=== PATIENT | female | born 1985 | race African-American/Black ===

== ENCOUNTER 2017-04-16 19:23 | Emergency (ER) | payer OTHER ==
[~2017-04-16] VITALS: Ht 162.6 cm; Wt 54.5 kg
[2017-04-16 21:28] VITALS: BP 114/58
== END 2017-04-16 21:32 | disposition home or self-care (01) ==
LOC: M ED 19:23
DX: L25.9 Unspecified contact dermatitis, unspecified cause (principal)

== ENCOUNTER → 2018-01-16 | Outpatient (REF) | payer OTHER ==
[2018-01-16 14:05] LABS: FERRITIN 49 NG/ML (8-252); IRON (FE) 112 UG/DL (50-170); PERCENT SATURATION 38.5 % (13.2-45.0); TOTAL IRON BINDING CAPACITY 291 UG/DL (250-450)
[2018-01-16 14:56] LABS: HEPATITIS C VIRUS ABY INDEX 0.1 INDEX (<0.8)
[2018-01-16 16:57] LABS: HIV 1&2 SCREEN CENTAUR NEGATIVE (NEGATIVE)
[2018-01-19 14:17] LABS: ANTINUCLEAR ANTIBODIES DIRECT Negative (Negative)
== END ==
LOC: M LAB REF 13:30
DX: D69.6 Thrombocytopenia, unspecified (principal)
CPT/HCPCS: 83550

== ENCOUNTER 2018-01-27 12:03 | Emergency (ER) | payer OTHER ==
[2018-01-27] MEDS: NS 1,000 ML IV (13:11)
[2018-01-27] MEDS: METOCLOPRAMIDE INJ 10MG/2ML VIAL (J2765) IV (13:11)
[2018-01-27 13:27] LABS: BASO # 0.1 10^3/uL (0.0-0.2); BASO % 0.5 % (0.0-1.0); EOS % 0.3 % (0.0-3.0); HEMATOCRIT 34.8 % (36.0-47.0); HEMOGLOBIN 12.3 g/dl (12.0-15.5); IMMATURE GRANULOCYTE % 0.4 % (0-3.0); LYMPH # 2.3 10^3/uL (1.5-4.5); LYMPH % 17.4 % (24.0-44.0); MEAN CORPUSCULAR HEMOGLOBIN 30.5 pg (27.0-33.0); MEAN CORPUSCULAR HGB CONC 35.3 g/dl (32.0-36.5); MEAN CORPUSCULAR VOLUME 86.4 fl (80.0-96.0); MONO # 0.6 10^3/uL (0.0-0.8); MONO % 4.3 % (0.0-5.0); NEUTROPHILS % 77.1 % (36.0-66.0); PLATELET COUNT, AUTOMATED 168 10^3/uL (150-450); RED BLOOD COUNT 4.03 10^6/uL (4.00-5.40); RED CELL DISTRIBUTION WIDTH 12.2 % (11.5-14.5)
[2018-01-27 13:30] LABS: KETONE, URINE AUTO RFX TRACE mg/dL (NEGATIVE); LEUKOCYTE ESTERASE UR AUTO RFX NEGATIVE (NEGATIVE); NITRITE, URINE AUTO RFX NEGATIVE (NEGATIVE); RBC, URINE AUTO RFX 1 /HPF (0-3); SPECIFIC GRAVITY UR AUTO RFX 1.013 (1.002-1.035); SQUAM EPITHELIAL CELL UR AURFX 1 /HPF (0-6); WBC, URINE AUTO RFX 4 /HPF (0-3)
[2018-01-27 14:01] LABS: ALBUMIN 3.7 GM/DL (3.2-5.2); ALBUMIN/GLOBULIN RATIO 1.12 (1.00-1.93); ALKALINE PHOSPHATASE 47 U/L (45-117); ALT/SGPT 19 U/L (12-78); AMYLASE 41 U/L (25-115); ANION GAP 11 MEQ/L (8-16); AST/SGOT 17 U/L (7-37); BILIRUBIN,TOTAL 0.5 MG/DL (0.2-1.0); BLOOD UREA NITROGEN 10 MG/DL (7-18); CALCIUM LEVEL 8.5 MG/DL (8.5-10.1); CARBON DIOXIDE LEVEL 23 MEQ/L (21-32); CHLORIDE LEVEL 105 MEQ/L (98-107); CREATININE FOR GFR 0.89 MG/DL (0.55-1.30); GLOMERULAR FILTRATION RATE > 60.0 (>60); GLUCOSE, FASTING 69 MG/DL (70-100); HCG, SERUM QUANTITATIVE 89430 MIU/ML; LIPASE 89 U/L (73-393); POTASSIUM SERUM 3.7 MEQ/L (3.5-5.1); SODIUM LEVEL 139 MEQ/L (136-145)
== END 2018-01-27 15:39 | disposition home or self-care (01) ==
LOC: M ED 12:03
DX: O21.0 Mild hyperemesis gravidarum (principal); Z3A.01 Less than 8 weeks gestation of pregnancy; Z79.899 Other long term (current) drug therapy; Z88.0 Allergy status to penicillin
CPT/HCPCS: J2765

== ENCOUNTER → 2018-03-12 | Outpatient (REF) | payer OTHER ==
[2018-03-13 13:12] LABS: CHLAMYDIA DNA AMPLIFICATION NEGATIVE (NEGATIVE); GC DNA AMPLIFICATION POSITIVE (NEGATIVE)
== END ==
LOC: M SFHCLERA 12:48
DX: N89.8 Other specified noninflammatory disorders of vagina (principal)

== ENCOUNTER 2018-03-13 15:01 | Emergency (ER) | payer OTHER ==
[2018-03-13] MEDS ORDERED: LIDOCAINE 1% MDV 20ML VIAL As Ordered (16:31)
[2018-03-13] MEDS: cefTRIAXone SOD 1 GM VIAL (J0696) IM (16:39)
[2018-03-13] MEDS: AZITHROMYCIN 250 MG TAB PO (16:39)
== END 2018-03-13 16:47 | disposition home or self-care (01) ==
LOC: M ED 15:01
DX: O23.591 Infection of other part of genital tract in pregnancy, first trimester (principal); A54.02 Gonococcal vulvovaginitis, unspecified; Z3A.13 13 weeks gestation of pregnancy; Z88.0 Allergy status to penicillin; Z79.2 Long term (current) use of antibiotics
CPT/HCPCS: J0696

== ENCOUNTER 2018-04-17 14:00 | Emergency (ER) | payer OTHER | END 2018-04-17 15:55 | disposition home or self-care (01) | LOC: M ED 14:00 | DX: O26.892 Other specified pregnancy related conditions, second trimester (principal); R10.2 Pelvic and perineal pain; Z3A.18 18 weeks gestation of pregnancy; Z88.0 Allergy status to penicillin; Z87.891 Personal history of nicotine dependence | CPT/HCPCS: 76857 ==